=== PATIENT | male | born 1970 | race Asian ===

== ENCOUNTER 2021-01-15 17:57 | Emergency (ER) | payer OTHER ==
[2021-01-15 18:38] VITALS: BP 119/85; PULSE 91; TEMP 98.2; BMI 21.2
== END 2021-01-15 20:02 | disposition home or self-care (01) ==
LOC: JERFT 17:57
DX: M62.838 Other muscle spasm (principal); M54.5 Low back pain
CPT/HCPCS: 72100-TC-FY; 73030-TC-LT-FY; 99284-25